=== PATIENT | male | born 1955 | race Caucasian/White ===

== ENCOUNTER 2023-08-07 10:00 | Day surgery (SDC) | payer OTHER ==
[~2023-08-07] VITALS: Ht 175.3 cm; Wt 89.8 kg
[2023-08-07] MEDS ORDERED: LIDOCAINE 2% 100 MG/5 ML UJET TP ONE ×2 (11:03→12:15)
[2023-08-07] MEDS ORDERED: fentaNYL citrate 0.05 MG/ML VIAL ONE (11:03)
[2023-08-07] MEDS: fentaNYL citrate 0.05 MG/ML VIAL IVP ONE (11:20)
[2023-08-07] MEDS ORDERED: SIMETHICONE 40 MG/0.6 ML ONE (11:43)
== END 2023-08-07 12:19 | disposition home or self-care (01) ==
LOC: MOR 10:00 → MMU 10:02 → MOR 12:19
PROVIDERS: ATTEND Internal Medicine Gastroenterology
DX: R19.4 Change in bowel habit (principal); K64.8 Other hemorrhoids; K63.5 Polyp of colon; Z85.038 Personal history of other malignant neoplasm of large intestine; Z83.3 Family history of diabetes mellitus; Z79.899 Other long term (current) drug therapy; Z98.890 Other specified postprocedural states
CPT/HCPCS: 45385; J3010